=== PATIENT | female | born 2000 | race Caucasian/White ===

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

== ENCOUNTER 2023-02-24 00:52 | Emergency (ER) | payer OTHER ==
[2023-02-24 01:02] VITALS: BP 114/75; PULSE 92; RESP 16; TEMP 97.8
[2023-02-24] MEDS ORDERED: KETOROLAC 15 MG/ML 1 ML VIAL IM STA (01:17)
--- NOTE | 2023-02-24 01:21 | ED ---
Abdominal Pain HPI - General Chief Complaint: Abdominal Pain Stated Complaint: ABD Pain - Right side Time Seen by Provider: 02/24/23 01:03 Source: patient, RN notes reviewed, old records reviewed Mode of arrival: ambulatory Limitations: no limitations - History of Present Illness Initial Comments: This is a nontoxic-appearing 22-year-old female that presents to the emergency room ambulatory with complaints of right lower quadrant and rectal pain for the past 2 days. She states it's worse when she sits down. Has been having hard stools. Has had some nausea but no vomiting. Last menstrual period was January 27 but no concern for . She states her periods are irregular. Denies any dysuria. No vaginal bleeding or discharge. Patient does have a history of asthma, no previous abdominal surgeries. -: days(s) (2) Location: RLQ (and rectum) Severity scale (1-10): 7 Worsens With: bowel movement Context: other (constipation) Treatments Prior to Arrival: other (tylenol) - Related Data LMP (females 10-50): 1 month Patient : No Previous Rx's Medication Instructions Recorded Amoxic-Pot Clav 875-125Mg 1 tab PO Q12HR #14 tablet 01/11/18 [Augmentin 875-125] Amoxicillin/Potassium Clav 1 tab PO Q12HR #20 tab 08/31/18 [Augmentin 875-125 Tablet] Ofloxacin 0.3% Ophth Soln [Ocuflox 10 drops LEFT EAR BID 14 Days ml 08/31/18 Ophth Soln] polyethylene glycoL 3350 [Miralax] 17 gm PO DAILY 7 Days #7 packet 02/24/23 Allergies Allergy/AdvReac Type Severity Reaction Status Date / Time No Known Allergies Allergy Verified 01/11/18 07:25 Review of Systems ROS Statement: Those systems with pertinent positive or pertinent negative responses have been documented in the HPI. ROS Other: All systems not noted in ROS Statement are negative. Past Medical History Past Medical History: Asthma History of Any Multi-Drug Resistant Organisms: None Reported Past Surgical History: No Surgical Hx Reported Past Psychological History: No Psychological Hx Reported Smoking Status: Never smoker Past Alcohol Use History: None Reported Past Drug Use History: None Reported General Exam Limitations: no limitations General appearance: alert, in no apparent distress Head exam: Present: atraumatic, normocephalic Eye exam: Present: normal appearance. Absent: scleral icterus, conjunctival injection, periorbital swelling, periorbital tenderness Neck exam: Present: full ROM. Absent: tenderness, meningismus Respiratory exam: Absent: respiratory distress, accessory muscle use Cardiovascular Exam: Present: regular rate GI/Abdominal exam: Present: soft. Absent: distended, tenderness, guarding, rebound, rigid Extremities exam: Present: full ROM, normal capillary refill. Absent: tenderness, pedal edema Neurological exam: Present: alert, oriented X3, CN II-XII intact, normal gait Psychiatric exam: Present: normal affect, normal mood Skin exam: Present: warm, dry, normal color. Absent: cyanosis, diaphoretic, petechiae, pallor Course Vital Signs 02/24/23 00:59 Temperature 97.8 F Pulse Rate 92 Respiratory 16 Rate Blood Pressure 114/75 O2 Sat by Pulse 100 Oximetry Medical Decision Making - Medical Decision Making On exam patient has no right lower quadrant abdominal pain. States has been having a hard small stools causing rectal pain. Last bowel movement 2 days ago. Urine negative. No evidence urinary tract infection. Denies any vaginal discharge. X-ray interpreted by me shows significant constipation. Mineral oil enema provided in the emergency room which she elected to provide to herself. Patient states had a very large bowel movement 2. Patient was offered a rectal exam was declined. She was written a prescription for MiraLAX and directed to increase her fluid intake. She is agreeable to this plan of care. Case discussed with Dr. Jeff Was pt. sent in by a medical professional or institution (, PA, LEATHER TACKER, urgent care, hospital, or fci...) When possible be specific @ -No Did you speak to anyone other than the patient for history (EMS, parent, family, police, friend...)? What history was obtained from this source @ -No Did you review nursing and triage notes (agree or disagree)? Why? @ -I reviewed and agree with nursing and triage notes Were old charts reviewed (outside hosp., previous admission, EMS record, old EKG, old radiological studies, urgent care reports/EKG's, [facility]ci records)? Report findings @ -No old charts were reviewed Differential Diagnosis (chest pain, altered mental status, abdominal pain women, abdominal pain men, vaginal bleeding, weakness, fever, dyspnea, syncope, headache, dizziness, GI bleed, back pain, seizure, CVA, palpatations, mental health, musculoskeletal)? @ -Differential Abdominal Pain Women: Appendicitis, Cholecystitis, diverticulosis, ischemic bowel, pancreatitis, hepatitis, UTI, gastroenteritis, AAA, incarcerated hernia, bowel obstruction, constipation, inflammatory bowel, hepatitis, peptic ulcer disease, splenic infarction, perforated viscus, vulvitis, ovarian torsion, PID, kidney stone, placenta abruption, this is not meant to be an all-inclusive list EKG interpreted by me (3pts min.). @ -n/a X-rays interpreted by me (1pt min.). @ -yes as above CT interpreted by me (1pt min.). @ -None done U/S interpreted by me (1pt. min.). @ -None done What testing was considered but not performed or refused? (CT, X-rays, U/S, labs)? Why? @ -None What meds were considered but not given or refused? Why? @ -None Did you discuss the management of the patient with other professionals (professionals i.e. , PA, LEATHER TACKER, lab, RT, psych nurse, social media campaign manager, physician's aide, teacher, forest fire officer, business case analyst)? Give summary @ -No Was smoking cessation discussed for >3mins.? @ -No Was critical care preformed (if so, how long)? @ -No Were there social determinants of health that impacted care today? How? (Homel essness, low income, unemployed, alcoholism, drug addiction, transportation, low edu. Level, literacy, decrease access to med. care, [facility], rehab)? @ -No Was there de-escalation of care discussed even if they declined (Discuss DNR or withdrawal of care, Hospice)? DNR status @ -No What co-morbidities impacted this encounter? (DM, HTN, Smoking, COPD, CAD, Cancer, CVA, ARF, Chemo, Hep., AIDS, mental health diagnosis, sleep apnea, morbid obesity)? @ -asthma Was patient admitted / discharged? Hospital course, mention meds given and route, prescriptions, significant lab abnormalities, going to OR and other pertinent info. @ -Discharged Undiagnosed new problem with uncertain prognosis? @ -No Drug Therapy requiring intensive monitoring for toxicity (Heparin, Nitro, Insulin, Cardizem)? @ -No Were any procedures done? @ -No Diagnosis/symptom? @ -Constipation Acute, or Chronic, or Acute on Chronic? @ -Acute Uncomplicated (without systemic symptoms) or Complicated (systemic symptoms)? @ -Uncomplicated Side effects of treatment? @ -No Exacerbation, Progression, or Severe Exacerbation? @ -No Poses a threat to life or bodily function? How? (Chest pain, [place], [place], pneumonia, PE, COPD, DKA, ARF, appy, cholecystitis, CVA, Diverticulitis, Homicidal, Suicidal, threat to staff... and all critical care pts) @ -No - Lab Data Lab Results 02/24/23 02/24/23 Range/Units 01:17 01:17 Urine Color Light Yellow Urine Appearance Cloudy H (Clear) Urine pH 7.0 (5.0-8.0) Ur Specific [place] 1.016 (1.001-1.035) Urine Protein Negative (Negative) Urine Glucose (UA) Negative (Negative) Urine Ketones Negative (Negative) Urine Blood Negative (Negative) Urine Nitrite Negative (Negative) Urine Bilirubin Negative (Negative) Urine Urobilinogen <2.0 (<2.0) mg/dL Ur Leukocyte Esterase Small H (Negative) Urine RBC 1 (0-5) /hpf Urine WBC 4 (0-5) /hpf Ur Squamous Epith Cells 2 (0-4) /hpf Amorphous Sediment Rare H (None) /hpf Urine Bacteria Rare H (None) /hpf Urine HCG, Qual Not Detected (Not Detectd) Disposition Clinical Impression: Constipation Disposition: HOME SELF-CARE Condition: Good Instructions (If sedation given, give patient instructions): Constipation (ED) Additional Instructions: Increase your fluid intake. Use the MiraLAX daily. If you develop diarrhea stop taking the MiraLAX. Follow-up with the primary care doctor next week as needed. Return to the emergency room with a number concerning symptoms including increased pain, fevers or persistent nausea and vomiting. Prescriptions: polyethylene glycoL 3350 [Miralax] 17 gm PO DAILY 7 Days #7 packet Is patient prescribed a controlled substance at d/c from ED?: No Referrals: None,Stated [Primary Care Provider] - 1-2 days Time of Disposition: 02:14
[2023-02-24 01:28] LABS: Amorphous Sediment,Urine Rare /hpf; Appearance,Urine Cloudy (Clear); Bacteria,Urine Rare /hpf; Bilirubin,Urine Negative (Negative); Blood,Urine Negative (Negative); Color,Urine Light Yellow; Glucose,Urine (UA) Negative (Negative); Ketones,Urine Negative (Negative); Leukocyte Esterase,Urine Small (Negative); Nitrite,Urine Negative (Negative); Protein,Urine Negative (Negative); RBC,Urine 1 /hpf (0-5); Specific Gravity,Urine 1.016 (1.001-1.035); Squamous Epithelial Cell,Urine 2 /hpf (0-4); Urobilinogen,Urine <2.0 mg/dL (<2.0); WBC,Urine 4 /hpf (0-5)
[2023-02-24] MEDS ORDERED: MINERAL OIL 133 ML ENEMA RECTAL STA (01:43)
--- NOTE | 2023-02-24 02:17 | XR ---
EXAM: XR Abdomen, 1 View CLINICAL HISTORY: ITS.REASON XR Reason: pain TECHNIQUE: Frontal supine view of the abdomen/pelvis. COMPARISON: No previous studies. FINDINGS: Gastrointestinal tract: Moderate to large quantity of stool throughout the colon. Nonspecific bowel gas pattern. Organs: Unremarkable as visualized. No radiopaque renal calculi. Bones/joints: Gentle dextroscoliosis of the lumbar spine. Soft tissues: Soft tissues are unremarkable. IMPRESSION: 1. Moderate to large quantity of stool. Consider constipation. 2. No radiopaque renal calculi. 3. Nonspecific bowel gas pattern.
== END 2023-02-24 02:22 | disposition home or self-care (01) ==
LOC: EC 00:52
DX: K59.00 Constipation, unspecified (principal); J45.909 Unspecified asthma, uncomplicated
CPT/HCPCS: 81001; 81025; 74018; 99284; 96372; J1885

== ENCOUNTER 2023-09-06 22:32 | Emergency (ER) | payer OTHER ==
[2023-09-06 22:37] VITALS: RESP 18; TEMP 98.7
--- NOTE | 2023-09-06 23:22 | ED ---
General Adult HPI - General Chief complaint: ENT Stated complaint: Sore throat Time Seen by Provider: 09/06/23 23:00 Source: patient Mode of arrival: ambulatory Limitations: no limitations - History of Present Illness Initial comments: Yoly is a 22-year-old female who presents the emergency department today for reevaluation of the ear pain and sore throat. Patient was evaluated at outside facility last week she was diagnosed with an ear infection she took a course of amoxicillin she had some improvement in the pain for a couple of days however wo ke this morning with worsening ear pain and sore throat. Patient states progressively worsened throughout the day so she came to the ER for evaluation. - Related Data Previous Rx's Medication Instructions Recorded Amoxic-Pot Clav 875-125Mg 1 tab PO Q12HR #14 tablet 01/11/18 [Augmentin 875-125] Amoxicillin/Potassium Clav 1 tab PO Q12HR #20 tab 08/31/18 [Augmentin 875-125 Tablet] Ofloxacin 0.3% Ophth Soln [Ocuflox 10 drops LEFT EAR BID 14 Days ml 08/31/18 Ophth Soln] polyethylene glycoL 3350 [Miralax] 17 gm PO DAILY 7 Days #7 packet 02/24/23 Amoxicillin/Potassium Clav 1 tab PO BID #14 tab 09/06/23 [Amox-Clav 875-125 mg Tablet] Allergies Allergy/AdvReac Type Severity Reaction Status Date / Time No Known Allergies Allergy Verified 01/11/18 07:25 Review of Systems ROS Statement: Those systems with pertinent positive or pertinent negative responses have been documented in the HPI. ROS Other: All systems not noted in ROS Statement are negative. Past Medical History Past Medical History: Asthma History of Any Multi-Drug Resistant Organisms: None Reported Past Surgical History: No Surgical Hx Reported Additional Past Surgical History / Comment(s): Tympanostomy tubes as a child Past Psychological History: No Psychological Hx Reported Smoking Status: Never smoker Past Alcohol Use History: None Reported Past Drug Use History: None Reported General Exam - General Exam Comments Initial Comments: Physical Exam GENERAL: Patient is well-developed and well-nourished. Patient is nontoxic and well-hydrated and is in no distress. HENT: Normocephalic, Atraumatic. Left TM is bulging with purulent material, scar noted from previous tympanostomy tubes Throat is clear there is no erythema no tonsillar exudates No anterior cervical lymphadenopathy EYES: PERRL, EOMI PULMONARY: Unlabored respirations. CARDIOVASCULAR: Warm and well perfused extremities ABDOMEN: Non-distended SKIN: No rashes or bruising : Deferred NEUROLOGIC: Alert and oriented Normal speech MUSCULOSKELETAL: Moving all extremities with no apparent injury PSYCHIATRIC: Appropriate behavior Limitations: no limitations Course Vital Signs 09/06/23 22:34 Temperature 98.7 F Pulse Rate 79 Respiratory 18 Rate Blood Pressure 118/77 O2 Sat by Pulse 98 Oximetry Medical Decision Making - Medical Decision Making Was pt. sent in by a medical professional or institution (, KIERRA, DIRECTOR OF CAMPUS RECREATION, urgent care, hospital, or [facility]...) When possible be specific @ -No Did you speak to anyone other than the patient for history (EMS, parent, family, police, friend...)? What history was obtained from this source @ -No Did you review nursing and triage notes (agree or disagree)? Why? @ -I reviewed and agree with nursing and triage notes Were old charts reviewed (outside hosp., previous admission, EMS record, old EKG, old radiological studies, urgent care reports/EKG's, [facility] records)? Report findings @ -No old charts were reviewed Differential Diagnosis (chest pain, altered mental status, abdominal pain women, abdominal pain men, vaginal bleeding, weakness, fever, dyspnea, syncope, headache, dizziness, GI bleed, back pain, seizure, CVA, palpatations, mental health, musculoskeletal)? @ -Differential includes viral upper respiratory infection, strep throat, ear infections, tonsillar abscess, retropharyngeal abscess, uvulitis EKG interpreted by me (3pts min.). @ -As above X-rays interpreted by me (1pt min.). @ -None done CT interpreted by me (1pt min.). @ -None done U/S interpreted by me (1pt. min.). @ -None done What testing was considered but not performed or refused? (CT, X-rays, U/S, labs)? Why? @ -None What meds were considered but not given or refused? Why? @ -None Did you discuss the management of the patient with other professionals (professionals i.e. KIERRA Villeda, DIRECTOR OF CAMPUS RECREATION, lab, RT, psych nurse, social sciences instructor, irrigator valve pipe, teacher, tactical debriefer officer, bilingual case manager)? Give summary @ -No Was smoking cessation discussed for >3mins.? @ -No Was critical care preformed (if so, how long)? @ -No Were there social determinants of health that impacted care today? How? ( Homelessness, low income, unemployed, alcoholism, drug addiction, transportation, low edu. Level, literacy, decrease access to med. care, care home, rehab)? @ -No Was there de-escalation of care discussed even if they declined (Discuss DNR or withdrawal of care, Hospice)? DNR status @ -No What co-morbidities impacted this encounter? (DM, HTN, Smoking, COPD, CAD, Cancer, CVA, ARF, Chemo, Hep., AIDS, mental health diagnosis, sleep apnea, morbid obesity)? @ -None Was patient admitted / discharged? Hospital course, mention meds given and route, prescriptions, significant lab abnormalities, going to OR and other pertinent info. @ -Discharge The patient was seen and evaluated history is obtained from patient physical exam reveals persistent left otitis media we will change antibiotic course to Augmentin and referred to ENT for outpatient follow-up Undiagnosed new problem with uncertain prognosis? @ -No Drug Therapy requiring intensive monitoring for toxicity (Heparin, Nitro, Insulin, Cardizem)? @ -No Were any procedures done? @ -No Diagnosis/symptom? @ -Left otitis media Acute, or Chronic, or Acute on Chronic? @ -Acute Uncomplicated (without systemic symptoms) or Complicated (systemic symptoms)? @ -Uncomplicated Side effects of treatment? @ -No Exacerbation, Progression, or Severe Exacerbation? @ -No Poses a threat to life or bodily function? How? (Chest pain, [place], [place], pneumonia, PE, COPD, DKA, ARF, appy, cholecystitis, CVA, Diverticulitis, Homicidal, Suicidal, threat to staff... and all critical care pts) @ -No - Lab Data Lab Results 09/06/23 09/06/23 Range/Units 22:39 22:39 Influenza Type A (PCR) Not Detected (Not Detectd) Influenza Type B (PCR) Not Detected (Not Detectd) RSV (PCR) Not Detected (Not Detectd) SARS-CoV-2 (PCR) Not Detected (Not Detectd) Group A Strep (PCR) NOT DETECTED (Not Detectd) Disposition Clinical Impression: Left otitis media Disposition: HOME SELF-CARE Condition: Stable Instructions (If sedation given, give patient instructions): Ear Infection (ED) Prescriptions: Amoxicillin/Potassium Clav [Amox-Clav 875-125 mg Tablet] 1 tab PO BID #14 tab Is patient prescribed a controlled substance at d/c from ED?: No Referrals: None,Stated [Primary Care Provider] - 1-2 days Delon Vera MD [STAFF PHYSICIAN] - 1-2 days
[2023-09-06] MEDS: AMOXIC-POT CLAV 875-125MG 1 EACH TAB PO STA (23:29)
[2023-09-07 00:39] VITALS: BP 114/70; PULSE 87
== END 2023-09-07 00:37 | disposition home or self-care (01) ==
LOC: EC 22:32
DX: H66.92 Otitis media, unspecified, left ear (principal); J45.909 Unspecified asthma, uncomplicated; Z20.822 Contact with and (suspected) exposure to COVID-19
CPT/HCPCS: 87636; 87651; 99283

== ENCOUNTER 2023-09-23 21:15 | Emergency (ER) | payer OTHER ==
--- NOTE | 2023-09-23 22:12 | ED ---
Eye Problem HPI - General Chief complaint: Eye Problems Stated complaint: Eye Pain Time Seen by Provider: 09/23/23 22:11 Source: patient, RN notes reviewed Mode of arrival: ambulatory Limitations: no limitations - History of Present Illness Initial comments: Patient is a 22-year-old female who presents the emergency department for right eye discomfort. This started 2 days ago in the right inner eye. Patient denies injury. Denies blurred vision, double vision, eye redness. Denies fever, upper respiratory symptoms. Denies contact lens use - Related Data Previous Rx's Medication Instructions Recorded Amoxic-Pot Clav 875-125Mg 1 tab PO Q12HR #14 tablet 01/11/18 [Augmentin 875-125] Amoxicillin/Potassium Clav 1 tab PO Q12HR #20 tab 08/31/18 [Augmentin 875-125 Tablet] Ofloxacin 0.3% Ophth Soln [Ocuflox 10 drops LEFT EAR BID 14 Days ml 08/31/18 Ophth Soln] polyethylene glycoL 3350 [Miralax] 17 gm PO DAILY 7 Days #7 packet 02/24/23 Amoxic-Pot Clav 875-125Mg 1 tab PO Q12HR #14 tab 09/07/23 [Augmentin 875-125] Benzonatate [Tessalon Perles] 100 mg PO TID PRN 10 Days #30 09/08/23 capsule Ibuprofen [Motrin] 800 mg PO Q8HR PRN #30 tab 09/24/23 Allergies Allergy/AdvReac Type Severity Reaction Status Date / Time No Known Allergies Allergy Verified 09/08/23 21:24 Review of Systems ROS Statement: Those systems with pertinent positive or pertinent negative responses have been documented in the HPI. ROS Other: All systems not noted in ROS Statement are negative. Past Medical History Past Medical History: Asthma History of Any Multi-Drug Resistant Organisms: None Reported Past Surgical History: No Surgical Hx Reported Additional Past Surgical History / Comment(s): Tympanostomy tubes as a child Past Psychological History: No Psychological Hx Reported Smoking Status: Never smoker Past Alcohol Use History: None Reported Past Drug Use History: None Reported General Exam - General Exam Comments Initial Comments: Visual Physical Exam Vital signs reviewed General: Well-appearing, nontoxic, no acute distress. Head: Normocephalic, atraumatic Eyes: PERRLA, EOMI ENT: Airway patent Chest: Nonlabored breathing Skin: No visual rash, normal skin tone Neuro: Alert and oriented 3 Musculoskeletal: No gross abnormalities Limitations: no limitations General appearance: alert Head exam: Present: atraumatic, normocephalic, normal inspection Eye exam: Present: normal appearance, PERRL, EOMI. Absent: scleral icterus, conjunctival injection, periorbital swelling Respiratory exam: Present: normal lung sounds bilaterally. Absent: respiratory distress, wheezes, rales, rhonchi, stridor Cardiovascular Exam: Present: regular rate, normal rhythm, normal heart sounds. Absent: systolic murmur, diastolic murmur, rubs, gallop, clicks Neurological exam: Present: alert Psychiatric exam: Present: normal affect, normal mood Skin exam: Present: warm, dry, intact, normal color. Absent: rash Course Vital Signs 09/23/23 09/24/23 22:07 00:19 Temperature 98.5 F Pulse Rate 73 72 Respiratory 18 18 Rate Blood Pressure 127/76 132/98 O2 Sat by Pulse 99 100 Oximetry Medical Decision Making - Medical Decision Making I performed the QuickNote portion of this chart - Eli Estrada PA-C Was pt. sent in by a medical professional or institution (KIERRA Villeda, MONORAIL CAR OPERATOR, urgent care, hospital, or jail...) When possible be specific @ -No Did you speak to anyone other than the patient for history (EMS, parent, family, police, friend...)? What history was obtained from this source @ -No Did you review nursing and triage notes (agree or disagree)? Why? @ -I reviewed and agree with nursing and triage notes Were old charts reviewed (outside hosp., previous admission, EMS record, old EKG, old radiological studies, urgent care reports/EKG's, jail records)? Report findings @ -No old charts were reviewed Differential Diagnosis (chest pain, altered mental status, abdominal pain women, abdominal pain men, vaginal bleeding, weakness, fever, dyspnea, syncope, headache, dizziness, GI bleed, back pain, seizure, CVA, palpatations, mental health)? @Conjunctivitis, corneal abrasion, corneal ulcer. This list is not meant to be all-inclusive EKG interpreted by me (3pts min.). @ -As above X-rays interpreted by me (1pt min.). @ -None done CT interpreted by me (1pt min.). @ -None done U/S interpreted by me (1pt. min.). @ -None done What testing was considered but not performed or refused? (CT, X-rays, U/S, labs)? Why? @ -None What meds were considered but not given or refused? Why? @ -None Did you discuss the management of the patient with other professionals (professionals i.e. DrDulce Maria, PA, MONORAIL CAR OPERATOR, lab, RT, psych nurse, high school social studies tutor, steam hammer operator, teacher, chief compliance officer, manager rn case)? Give summary @ -No Was smoking cessation discussed for >3mins.? @ -No Was critical care preformed (if so, how long)? @ -No Were there social determinants of health that impacted care today? How? (Homelessness, low income, unemployed, alcoholism, drug addiction, transportation, low edu. Level, literacy, decrease access to med. care, detention, rehab)? @ -No Was there de-escalation of care discussed even if they declined (Discuss DNR or withdrawal of care, Hospice)? DNR status @ -No What co-morbidities impacted this encounter? (DM, HTN, Smoking, COPD, CAD, Cancer, CVA, ARF, Chemo, Hep., AIDS, mental health diagnosis, sleep apnea, morbid obesity)? @ -None Was patient admitted / discharged? Hospital course, mention meds given and route, prescriptions, significant lab abnormalities, going to OR and other pertinent info. @ -Discharged with antibiotic drops for corneal abrasion Undiagnosed new problem with uncertain prognosis? @ -No Drug Therapy requiring intensive monitoring for toxicity (Heparin, Nitro, Insulin, Cardizem)? @ -No Were any procedures done? @ ricketts lamp examination Diagnosis/symptom? @ -corneal abrasion Acute, or Chronic, or Acute on Chronic? @ -acute Uncomplicated (without systemic symptoms) or Complicated (systemic symptoms)? @ -uncomplicated Side effects of treatment? @ -No Exacerbation, Progression, or Severe Exacerbation? @ -No Poses a threat to life or bodily function? How? (Chest pain, [place], [place], pneumonia, PE, COPD, DKA, ARF, appy, cholecystitis, CVA, Diverticulitis, Homicidal, Suicidal, threat to staff... and all critical care pts) @ -No Dr. Jeff is my attending Disposition Clinical Impression: Corneal abrasion, right Disposition: HOME SELF-CARE Condition: Good Instructions (If sedation given, give patient instructions): Corneal Abrasion (ED) Additional Instructions: Apply ointment 4 times daily for 5 days. Take motrin as needed for pain. Encourage you to follow-up with an application services manager. Return to the emergency department if you experience new, concerning, or worsening symptoms Prescriptions: Ibuprofen [Motrin] 800 mg PO Q8HR PRN #30 tab PRN Reason: Pain Is patient prescribed a controlled substance at d/c from ED?: No Referrals: None,Stated [Primary Care Provider] - 1-2 days
[2023-09-23 22:26] VITALS: RESP 18; TEMP 98.5
[2023-09-23] MEDS ORDERED: FLUORESCEIN STRIPS 1 MG STRIP RIGHT EYE STA (23:32)
[2023-09-23] MEDS ORDERED: PROPARACAINE 0.5% OPHTH DROPS 15 ML BTL RIGHT EYE STA (23:33)
[2023-09-23] MEDS ORDERED: IBUPROFEN 800 MG TAB PO STA (23:33)
[2023-09-24] MEDS ORDERED: ERYTHROMYCIN 5 MG/GM OPHTH OINT 3.5 GM TUBE RIGHT EYE STA (00:15)
[2023-09-24 00:34] VITALS: BP 132/98; PULSE 72
== END 2023-09-24 00:24 | disposition home or self-care (01) ==
LOC: EC 21:15
DX: S05.01XA Injury of conjunctiva and corneal abrasion without foreign body, right eye, initial encounter (principal); J45.909 Unspecified asthma, uncomplicated; X58.XXXA Exposure to other specified factors, initial encounter
CPT/HCPCS: 99283

== ENCOUNTER 2023-12-23 20:52 | Emergency (ER) | payer OTHER ==
[2023-12-23 21:31] VITALS: TEMP 97.9
--- NOTE | 2023-12-23 22:16 | ED ---
Headache HPI - General Chief Complaint: Headache Stated Complaint: Head injury Time Seen by Provider: 12/23/23 21:44 Mode of arrival: ambulatory Limitations: no limitations - History of Present Illness Initial Comments: 23-year-old female presenting with chief complaint of head injury. Patient states that she just moved into a house with slanted ceilings, she hit her head today because she is not used to the new ceilings yet. She had no loss of consciousness and takes no blood thinners. She has had some soreness over the area of impact. She was having a bit of dizziness immediately following the injury, however this has progressively improved. No vomiting. No vision or hearing changes. No numbness, tingling, weakness. No clear discharge from the nose or ears. No neck pain. - Related Data Previous Rx's Medication Instructions Recorded Amoxic-Pot Clav 875-125Mg 1 tab PO Q12HR #14 tablet 01/11/18 [Augmentin 875-125] Amoxicillin/Potassium Clav 1 tab PO Q12HR #20 tab 08/31/18 [Augmentin 875-125 Tablet] Ofloxacin 0.3% Ophth Soln [Ocuflox 10 drops LEFT EAR BID 14 Days ml 08/31/18 Ophth Soln] polyethylene glycoL 3350 [Miralax] 17 gm PO DAILY 7 Days #7 packet 02/24/23 Amoxic-Pot Clav 875-125Mg 1 tab PO Q12HR #14 tab 09/07/23 [Augmentin 875-125] Benzonatate [Tessalon Perles] 100 mg PO TID PRN 10 Days #30 09/08/23 capsule Ibuprofen [Motrin] 800 mg PO Q8HR PRN #30 tab 09/24/23 Allergies Allergy/AdvReac Type Severity Reaction Status Date / Time No Known Allergies Allergy Verified 12/23/23 21:04 Review of Systems ROS Statement: Those systems with pertinent positive or pertinent negative responses have been documented in the HPI. ROS Other: All systems not noted in ROS Statement are negative. Past Medical History Past Medical History: Asthma History of Any Multi-Drug Resistant Organisms: None Reported Past Surgical History: No Surgical Hx Reported, Ear Surgery Additional Past Surgical History / Comment(s): Tympanostomy tubes as a child Past Psychological History: No Psychological Hx Reported Smoking Status: Never smoker Past Alcohol Use History: None Reported Past Drug Use History: None Reported General Exam Limitations: no limitations General appearance: alert, in no apparent distress Head exam: Present: atraumatic, normocephalic Eye exam: Present: normal appearance, PERRL, EOMI Neck exam: Present: normal inspection, full ROM Respiratory exam: Absent: respiratory distress Cardiovascular Exam: Present: regular rate Extremities exam: Present: normal inspection, full ROM Neurological exam: Present: alert, oriented X3 Expanded Patient oriented to: Present: person, place, time Speech: Present: fluid speech Cranial nerves: EOM's Intact: Normal Cerebellar function: Finger to Nose: Normal, Heel to Koch: Normal Motor strength exam: RUE: 5, LUE: 5, RLE: 5, LLE: 5 Eye Response: (4) open spontaneously Motor Response: (6) obeys commands Verbal Response: (5) oriented [place] Total: 15 Psychiatric exam: Present: normal affect, normal mood Skin exam: Present: warm, dry Course Vital Signs 12/23/23 12/23/23 21:04 22:41 Temperature 97.9 F Pulse Rate 97 107 H Respiratory 16 18 Rate Blood Pressure 147/92 125/84 O2 Sat by Pulse 100 98 Oximetry Medical Decision Making - Medical Decision Making Was pt. sent in by a medical professional or institution ([facility], [facility], urgent care, hospital, or [facility]...) When possible be specific @ -No Did you speak to anyone other than the patient for history (EMS, parent, family, police, friend...)? What history was obtained from this source @ -No Did you review nursing and triage notes (agree or disagree)? Why? @ -I reviewed and agree with nursing and triage notes Were old charts reviewed (outside hosp., previous admission, EMS record, old EKG, old radiological studies, urgent care reports/EKG's, [facility] records)? Report findings @ -No old charts were reviewed Differential Diagnosis (chest pain, altered mental status, abdominal pain women, abdominal pain men, vaginal bleeding, weakness, fever, dyspnea, syncope, headache, dizziness, GI bleed, back pain, seizure, CVA, palpatations, mental health, musculoskeletal)? @ -[facility] Differential Headache: Migraine, tension, cluster, carbon monoxide, central venous thrombosis, pension karma temporal arteritis, acute closure glaucoma, intercranial hemorrhage, mastoiditis, sinusitis, head injury this is not meant to be an all-inclusive list. EKG interpreted by me (3pts min.). @ -As above X-rays interpreted by me (1pt min.). @ -None done CT interpreted by me (1pt min.). @ -None done U/S interpreted by me (1pt. min.). @ -None done What testing was considered but not performed or refused? (CT, X-rays, U/S, labs)? Why? @ -None What meds were considered but not given or refused? Why? @ -None Did you discuss the management of the patient with other professionals (professionals i.e. Dr., PA, KNITTER HELPER, lab, RT, psych nurse, child protective services social worker, bus attendant, teacher, chief risk officer, residential case manager)? Give summary @ -No Was smoking cessation discussed for >3mins.? @ -No Was critical care preformed (if so, how long)? @ -No Were there social determinants of health that impacted care today? How? (Homelessness, low income, unemployed, alcoholism, drug addiction, transportation, low edu. Level, literacy, decrease access to med. care, long term, rehab)? @ -No Was there de-escalation of care discussed even if they declined (Discuss DNR or withdrawal of care, Hospice)? DNR status @ -No What co-morbidities impacted this encounter? (DM, HTN, Smoking, COPD, CAD, Cancer, CVA, ARF, Chemo, Hep., AIDS, mental health diagnosis, sleep apnea, morbid obesity)? @ -None Was patient admitted / discharged? Hospital course, mention meds given and route, prescriptions, significant lab abnormalities, going to OR and other pertinent info. @ -23-year-old female presenting with chief complaint of head injury. She hit her head on her ceiling today, no loss of consciousness or blood thinners. History and physical exam were conducted. No focal neurological deficits, GCS is 15. [facility] head CT rules do not recommend CT at this time. Patient is educated on today's findings and supportive management at home. Follow-up with PCP. Report back to ER with any new or worsening symptoms. Discussed return parameters and answered all questions. Patient conveyed verbal understanding and agreed to the plan. I discussed this case in detail with my attending Dr. Wilson Undiagnosed new problem with uncertain prognosis? @ -No Drug Therapy requiring intensive monitoring for toxicity (Heparin, Nitro, Insulin, Cardizem)? @ -No Were any procedures done? @ -No Diagnosis/symptom? @ -Minor closed head injury Acute, or Chronic, or Acute on Chronic? @ -Acute Uncomplicated (without systemic symptoms) or Complicated (systemic symptoms)? @ -Uncomplicated Side effects of treatment? @ -No Exacerbation, Progression, or Severe Exacerbation? @ -No Poses a threat to life or bodily function? How? (Chest pain, [place], [place], pneumonia, PE, COPD, DKA, ARF, appy, cholecystitis, CVA, Diverticulitis, Homicidal, Suicidal, threat to staff... and all critical care pts) @ -No Disposition Clinical Impression: Minor closed head injury, Headache Disposition: HOME SELF-CARE Condition: Good Instructions (If sedation given, give patient instructions): Head Injury (ED), Acute Headache (ED) Additional Instructions: Follow-up with PCP. Report back to ER with any new or worsening symptoms. Take Motrin and Tylenol as needed for pain control. Is patient prescribed a controlled substance at d/c from ED?: No Referrals: None,Stated [Primary Care Provider] - 1-2 days Guy Sy MD [STAFF PHYSICIAN] - 1-2 days Time of Disposition: 22:16
[2023-12-23] MEDS: ACETAMINOPHEN TAB 325 MG TAB PO STA (22:38)
[2023-12-23 22:51] VITALS: BP 125/84; PULSE 107; RESP 18
== END 2023-12-23 22:41 | disposition home or self-care (01) ==
LOC: EC 20:52
DX: S09.90XA Unspecified injury of head, initial encounter (principal); J45.909 Unspecified asthma, uncomplicated; W22.8XXA Striking against or struck by other objects, initial encounter
CPT/HCPCS: 99283

== ENCOUNTER 2025-06-03 09:32 | Emergency (ER) | payer OTHER ==
[2025-06-03 10:06] VITALS: RESP 18
--- NOTE | 2025-06-03 10:48 | ED ---
Skin/Abscess/FB HPI - General Chief complaint: Skin/Abscess/Foreign Body Stated complaint: Urogenital Time Seen by Provider: 06/03/25 10:46 Source: patient, RN notes reviewed Mode of arrival: ambulatory Limitations: no limitations - History of Present Illness Initial comments: 24-year-old female presenting for abscess to labia x 4 days. States she has been applying warm compresses and abscess has been actively draining however continues to be cause pain and discomfort. Denies fevers, chills, nausea, vomiting. Denies vaginal discharge or urinary symptoms. - Related Data Previous Rx's Medication Instructions Recorded Amoxic-Pot Clav 875-125Mg 1 tab PO Q12HR #14 tablet 01/11/18 [Augmentin 875-125] Amoxicillin/Potassium Clav 1 tab PO Q12HR #20 tab 08/31/18 [Augmentin 875-125 Tablet] Ofloxacin 0.3% Ophth Soln [Ocuflox 10 drops LEFT EAR BID 14 Days ml 08/31/18 Ophth Soln] polyethylene glycoL 3350 [Miralax] 17 gm PO DAILY 7 Days #7 packet 02/24/23 Amoxic-Pot Clav 875-125Mg 1 tab PO Q12HR #14 tab 09/07/23 [Augmentin 875-125] Benzonatate [Tessalon Perles] 100 mg PO TID PRN 10 Days #30 09/08/23 capsule Ibuprofen [Motrin] 800 mg PO Q8HR PRN #30 tab 09/24/23 ceFIXime [Suprax] 400 mg PO DAILY 7 Days #7 capsule 06/03/25 clindamycin HCL 300 mg PO QID 7 Days #28 cap 06/03/25 Allergies Allergy/AdvReac Type Severity Reaction Status Date / Time No Known Allergies Allergy Verified 06/03/25 10:06 Review of Systems ROS Statement: Those systems with pertinent positive or pertinent negative responses have been documented in the HPI. ROS Other: All systems not noted in ROS Statement are negative. Past Medical History Past Medical History: Asthma History of Any Multi-Drug Resistant Organisms: None Reported Past Surgical History: No Surgical Hx Reported, Ear Surgery Additional Past Surgical History / Comment(s): Tympanostomy tubes as a child Past Psychological History: Depression, PTSD Smoking Status: Never smoker Past Alcohol Use History: None Reported Past Drug Use History: None Reported General Exam Limitations: no limitations General appearance: alert, in no apparent distress Head exam: Present: atraumatic, normocephalic, normal inspection Eye exam: Present: normal appearance, PERRL, EOMI. Absent: scleral icterus, conjunctival injection, periorbital swelling External exam: Absent: normal external exam (There is a fluctuant 2 x 2 cm mass on right outer labia with no active drainage, mild warmth minimal erythema. [facility] venereal disease investigator examination) Course Vital Signs 06/03/25 10:03 Temperature 98.2 F Pulse Rate 84 Respiratory 18 Rate Blood Pressure 106/68 O2 Sat by Pulse 99 Oximetry Procedures - Incision & Drainage Consent Obtained: verbal consent Indication: Bartholin cyst Site: vulva/vagina Size (cm): 2 I&D Cleaning Method: Betadine Sterile Field Used?: No Scalpel Used: #11 Ultrasound used: No Needle Aspiration Performed?: No Irrigation Performed?: No I&D Drainage Obtained: Blood Culture Obtained?: No Complications: pain, other (Patient did not tolerate well, patient requesting to stop the procedure) Medical Decision Making - Medical Decision Making Was pt. sent in by a medical professional or institution (, PA, CHIEF OPERATOR HYDROFORMER, urgent care, hospital, or group home...) When possible be specific @ -No Did you speak to anyone other than the patient for history (EMS, parent, family, police, friend...)? What history was obtained from this source @ -No Did you review nursing and triage notes (agree or disagree)? Why? @ -I reviewed and agree with nursing and triage notes Were old charts reviewed (outside hosp., previous admission, EMS record, old EKG, old radiological studies, urgent care reports/EKG's, group home records)? Report findings @ -No old charts were reviewed Differential Diagnosis (chest pain, altered mental status, abdominal pain women, abdominal pain men, vaginal bleeding, weakness, fever, dyspnea, syncope, headache, dizziness, GI bleed, back pain, seizure, CVA, palpatations, mental health, musculoskeletal)? @ -[Differential Musculoskeletal Bartholin cyst, abscess, muscular strain, contusion, ligament sprain, fracture, arthritis, septic arthritis, bursitis, cellulitis, muscle spasm, nerve compression, DVT, arterial occlusion, herpes zoster, electrolyte abnormality, tumor.... This is not meant to be in all inclusive list EKG interpreted by me (3pts min.). @ -None X-rays interpreted by me (1pt min.). @ -None done CT interpreted by me (1pt min.). @ -None done U/S interpreted by me (1pt. min.). @ -None done What testing was considered but not performed or refused? (CT, X-rays, U/S, labs)? Why? @ -None What meds were considered but not given or refused? Why? @ -None Did you discuss the management of the patient with other professionals (professionals i.e. , PA, CHIEF OPERATOR HYDROFORMER, lab, RT, psych nurse, social work manager, property technician, teacher, retirement officer, case reviewer)? Give summary @ -No Was smoking cessation discussed for >3mins.? @ -No Was critical care preformed (if so, how long)? @ -No Were there social determinants of health that impacted care today? How? (Homelessness, low income, unemployed, alcoholism, drug addiction, transportation, low edu. Level, literacy, decrease access to med. care, halfway, rehab)? @ -No Was there de-escalation of care discussed even if they declined (Discuss DNR or withdrawal of care, Hospice)? DNR status @ -No What co-morbidities impacted this encounter? (DM, HTN, Smoking, COPD, CAD, Cancer, CVA, ARF, Chemo, Hep., AIDS, mental health diagnosis, sleep apnea, morbid obesity)? @ -None Was patient admitted / discharged? Hospital course, mention meds given and route, prescriptions, significant lab abnormalities, going to OR and other pertinent info. @ -Discharge. 24-year-old female presenting for abscess on labia x 4 days. Physical examination reveals 2 x 2 cm Bartholin cyst. Discussed with patient that the best treatment is incision and drainage with catheter placement with outpatient antibiotics. Patient declines catheter placement but states she is willing to but states she is willing to attempt incision and drainage without numbing as she has had this in the past and was very painful. Incision and drainage was attempted however patient unable to tolerate the procedure and asked to stop the procedure. Prescribed appropriate antibiotics and advised patient to apply warm compresses 3 times daily. Appropriate return precautions/follow-up/supportive care discussed. Case was discussed with my ED attending Dr. Hare. Undiagnosed new problem with uncertain prognosis? @ -No Drug Therapy requiring intensive monitoring for toxicity (Heparin, Nitro, Insulin, Cardizem)? @ -No Were any procedures done? @ -Attempted I&D however unsuccessful due to given patient was not able to tolerate the procedure Diagnosis/symptom? @ -Bartholin cyst Acute, or Chronic, or Acute on Chronic? @ -Acute Uncomplicated (without systemic symptoms) or Complicated (systemic symptoms)? @ -Uncomplicated Side effects of treatment? @ -No Exacerbation, Progression, or Severe Exacerbation? @ -No Poses a threat to life or bodily function? How? (Chest pain, [place], [place], pneumonia, PE, COPD, DKA, ARF, appy, cholecystitis, CVA, Diverticulitis, Homicidal, Suicidal, threat to staff... and all critical care pts) @ -No Disposition Clinical Impression: Bartholin's gland abscess Disposition: HOME SELF-CARE Condition: Stable Instructions (If sedation given, give patient instructions): Bartholin Cyst (ED) Additional Instructions: Take antibiotics as directed. Apply warm compresses 3 times daily. Manipulate the abscess while it is actively draining as discussed. Sitz baths may also help. Please return to the Emergency Department if symptoms worsen or any other concerns. Prescriptions: clindamycin HCL 300 mg PO QID 7 Days #28 cap ceFIXime [Suprax] 400 mg PO DAILY 7 Days #7 capsule Is patient prescribed a controlled substance at d/c from ED?: No Referrals: None,Stated [Primary Care Provider] - 1-2 days Time of Disposition: 11:15
[2025-06-03 11:30] VITALS: BP 104/72; PULSE 80; TEMP 98.1
== END 2025-06-03 11:29 | disposition home or self-care (01) ==
LOC: EC 09:32
DX: N75.0 Cyst of Bartholin's gland (principal)
CPT/HCPCS: 56420; 99283

== ENCOUNTER 2025-06-04 02:15 | Emergency (ER) | payer OTHER ==
--- NOTE | 2025-06-04 03:20 | ED ---
Female Urogenital HPI - General Chief complaint: Urogenital Stated complaint: dizzy Time Seen by Provider: 06/04/25 02:34 Source: patient, RN notes reviewed Mode of arrival: ambulatory Limitations: no limitations - History of Present Illness Initial comments: This is a 24-year-old female with history of asthma presenting for labial cyst. Patient was seen in this ER yesterday, declining I&D due to significant pain. Patient states cyst is becoming larger and more painful with associated nausea despite use of warm compresses. Patient states she woke this morning feeling "out of it". Denies dysuria, hematuria, vaginal bleeding/discharge, abdominal pain. Onset/Timin -: days(s) Location: labia Radiation: non-radiating Severity: moderate Consistency: constant Improves with: none Worsens with: none - Related Data Previous Rx's Medication Instructions Recorded Amoxic-Pot Clav 875-125Mg 1 tab PO Q12HR #14 tablet 01/11/18 [Augmentin 875-125] Amoxicillin/Potassium Clav 1 tab PO Q12HR #20 tab 08/31/18 [Augmentin 875-125 Tablet] Ofloxacin 0.3% Ophth Soln [Ocuflox 10 drops LEFT EAR BID 14 Days ml 08/31/18 Ophth Soln] polyethylene glycoL 3350 [Miralax] 17 gm PO DAILY 7 Days #7 packet 02/24/23 Amoxic-Pot Clav 875-125Mg 1 tab PO Q12HR #14 tab 09/07/23 [Augmentin 875-125] Benzonatate [Tessalon Perles] 100 mg PO TID PRN 10 Days #30 09/08/23 capsule Ibuprofen [Motrin] 800 mg PO Q8HR PRN #30 tab 09/24/23 ceFIXime [Suprax] 400 mg PO DAILY 7 Days #7 capsule 06/03/25 clindamycin HCL 300 mg PO QID 7 Days #28 cap 06/03/25 Mag Hydrox/Al Hydrox/Simeth 10 - 20 ml PO QID PRN #473 ml 06/11/25 [Maalox] Metoclopramide [Reglan] 10 mg PO Q6H PRN #20 tab 06/11/25 Pantoprazole Sodium 40 mg PO DAILY #30 tab 06/11/25 Allergies Allergy/AdvReac Type Severity Reaction Status Date / Time No Known Allergies Allergy Verified 06/10/25 22:20 Review of Systems ROS Statement: Those systems with pertinent positive or pertinent negative responses have been documented in the HPI. ROS Other: All systems not noted in ROS Statement are negative. Past Medical History Past Medical History: Asthma History of Any Multi-Drug Resistant Organisms: None Reported Past Surgical History: No Surgical Hx Reported, Ear Surgery Additional Past Surgical History / Comment(s): Tympanostomy tubes as a child Past Psychological History: Depression, PTSD Smoking Status: Never smoker Past Alcohol Use History: None Reported Past Drug Use History: None Reported General Exam General appearance: alert, in no apparent distress Head exam: Present: atraumatic, normocephalic, normal inspection Eye exam: Present: normal appearance, PERRL, EOMI. Absent: scleral icterus, conjunctival injection, periorbital swelling ENT exam: Present: normal exam, mucous membranes moist Neck exam: Present: normal inspection. Absent: tenderness, meningismus, lymphadenopathy Respiratory exam: Present: normal lung sounds bilaterally. Absent: respiratory distress, wheezes, rales, rhonchi, stridor Cardiovascular Exam: Present: regular rate, normal rhythm, normal heart sounds. Absent: systolic murmur, diastolic murmur, rubs, gallop, clicks GI/Abdominal exam: Present: soft, normal bowel sounds. Absent: distended, tenderness, guarding, rebound, rigid External exam: Present: erythema, swelling (Positive erythema, edema and tenderness with fluctuant cyst/abscess of right superior labia majora without obvious discharge or open wound) Extremities exam: Present: normal inspection, full ROM, normal capillary refill. Absent: tenderness, pedal edema, joint swelling, calf tenderness Back exam: Present: normal inspection Neurological exam: Present: alert, oriented X3, CN II-XII intact Psychiatric exam: Present: normal affect, normal mood Skin exam: Present: warm, dry, intact, normal color. Absent: rash Course Vital Signs 06/04/25 06/04/25 02:21 05:05 Temperature 97.4 F L 97.6 F Pulse Rate 82 81 Respiratory 19 18 Rate Blood Pressure 128/78 124/72 O2 Sat by Pulse 99 97 Oximetry Procedures - Incision & Drainage Consent Obtained: verbal consent Indication: Abscess/cyst Site: vulva/vagina Size (cm): 3 Anesthetic Used: lidocaine 1% I&D Cleaning Method: Alcohol Wipe Sterile Field Used?: No Scalpel Used: #11 Ultrasound used: No Needle Aspiration Performed?: No Irrigation Performed?: Yes I&D Drainage Obtained: Blood, Serous Insertion of drain: No Culture Obtained?: No Complications: pain Patient Tolerated Procedure: well, no complications Medical Decision Making - Medical Decision Making Was pt. sent in by a medical professional or institution (KIERRA Villeda, KNIFE FINISHER, urgent care, hospital, or assisted...) When possible be specific @ -No Did you speak to anyone other than the patient for history (EMS, parent, family, police, friend...)? What history was obtained from this source @ -No Did you review nursing and triage notes (agree or disagree)? Why? @ -I reviewed and agree with nursing and triage notes Were old charts reviewed (outside hosp., previous admission, EMS record, old EKG, old radiological studies, urgent care reports/EKG's, assisted records)? Report findings @ -Chart from ER visit on 06/03/2025 reviewed, indicating patient was unable to tolerate I&D of abscess at the time and advised warm compress and antibiotics. Differential Diagnosis (chest pain, altered mental status, abdominal pain women, abdominal pain men, vaginal bleeding, weakness, fever, dyspnea, syncope, headache, dizziness, GI bleed, back pain, seizure, CVA, palpatations, mental health, musculoskeletal)? @ -Differential Musculoskeletal Muscular strain, contusion, ligament sprain, fracture, arthritis, abscess, cyst, septic arthritis, bursitis, cellulitis, muscle spasm, nerve compression, DVT, arterial occlusion, herpes zoster, electrolyte abnormality, tumor.... This is not meant to be in all inclusive list EKG interpreted by me (3pts min.). @ -Not done X-rays interpreted by me (1pt min.). @ -None done CT interpreted by me (1pt min.). @ -None done U/S interpreted by me (1pt. min.). @ -None done What testing was considered but not performed or refused? (CT, X-rays, U/S, labs)? Why? @ -None What meds were considered but not given or refused? Why? @ -None Did you discuss the management of the patient with other professionals (professionals i.e. KIERRA Villeda, KNIFE FINISHER, lab, RT, psych nurse, social media coordinator, watch supervisor, teacher, client sales and service officer, cyanide case hardener)? Give summary @ -No Was smoking cessation discussed for >3mins.? @ -No Was critical care preformed (if so, how long)? @ -No Were there social determinants of health that impacted care today? How? (Homelessness, low income, unemployed, alcoholism, drug addiction, transportation, low edu. Level, literacy, decrease access to med. care, care home, rehab)? @ -No Was there de-escalation of care discussed even if they declined (Discuss DNR or withdrawal of care, Hospice)? DNR status @ -No What co-morbidities impacted this encounter? (DM, HTN, Smoking, COPD, CAD, Cancer, CVA, ARF, Chemo, Hep., AIDS, mental health diagnosis, sleep apnea, morbid obesity)? @ -None Was patient admitted / discharged? Hospital course, mention meds given and route, prescriptions, significant lab abnormalities, going to OR and other pertinent info. @ -Incision and drainage performed with blood and serous like fluid expressed with ongoing drainage following flushing. Abscess culture swab obtained. 4 x 4 gauze placed over incision site and advised patient to allow ongoing drainage from site with pad changes as needed. Keep area clean with antibacterial soap and water at least twice daily. Continue previously prescribed clindamycin to completion. Discussed patient with Dr. Brewer. Undiagnosed new problem with uncertain prognosis? @ -No Drug Therapy requiring intensive monitoring for toxicity (Heparin, Nitro, Insulin, Cardizem)? @ -No Were any procedures done? @ -Abscess incision and drainage performed. See procedure note Diagnosis/symptom? @ -Labial abscess/cyst, possible Bartholin cyst Acute, or Chronic, or Acute on Chronic? @ -Acute Uncomplicated (without systemic symptoms) or Complicated (systemic symptoms)? @ -Uncomplicated Side effects of treatment? @ -No Exacerbation, Progression, or Severe Exacerbation? @ -No Poses a threat to life or bodily function? How? (Chest pain, [place], NC, pneumonia, PE, COPD, DKA, ARF, appy, cholecystitis, CVA, Diverticulitis, Homicidal, Suicidal, threat to staff... and all critical care pts) @ -No Disposition Clinical Impression: Abscess of right genital labia Disposition: HOME SELF-CARE Condition: Fair Instructions (If sedation given, give patient instructions): Abscess Incision and Drainage (ED), Abscess (ED) Additional Instructions: Keep incision site clean with antibacterial soap and water with pad changes as needed. Continue previously prescribed antibiotics as directed. Apply warm compress to affected area for 10 minutes up to 4 times daily. Follow-up with [facility] next week for ongoing care/management. Is patient prescribed a controlled substance at d/c from ED?: No Referrals: None,Stated [Primary Care Provider] - 1-2 days Jennifer Schneider MD [STAFF PHYSICIAN] - 1-2 days Time of Disposition: 04:40
[2025-06-04] MEDS: LIDOCAINE 1% INJ 10MG/ML (20 ML MDV) SQ ONE (04:56)
[2025-06-04 05:08] VITALS: BP 124/72; PULSE 81; RESP 18; TEMP 97.6
== END 2025-06-04 05:11 | disposition home or self-care (01) ==
LOC: EC 02:15
DX: N76.4 Abscess of vulva (principal)
CPT/HCPCS: 99283; 56405; J2003

== ENCOUNTER 2025-06-10 22:15 | Emergency (ER) | payer OTHER ==
[2025-06-10] MEDS: SODIUM CHLORIDE 0.9% 1,000 ML IV ONE (22:40)
[2025-06-10] MEDS: DICYCLOMINE 10 MG/ML 2 ML AMP IM STA (22:40)
[2025-06-10] MEDS: FAMOTIDINE 20 MG/2 ML VIAL IV STA (22:41)
[2025-06-10] MEDS: PANTOPRAZOLE 40 MG/10 ML VIAL IVP STA (22:41)
[2025-06-10] MEDS: ONDANSETRON 4 MG/2 ML VIAL IVP STA (22:41)
[2025-06-10 22:45] LABS: Bacteria,Urine Rare /hpf; Bilirubin,Urine Negative (Negative); Blood,Urine Negative (Negative); Color,Urine Colorless; Glucose,Urine (UA) Negative (Negative); Ketones,Urine Negative (Negative); Leukocyte Esterase,Urine Negative (Negative); Mucus,Urine Rare /hpf; Nitrite,Urine Negative (Negative); PH, Urine 6.5 (5.0-8.0); Protein,Urine Negative (Negative); RBC,Urine <1 /hpf (0-5); Specific Gravity,Urine 1.016 (1.001-1.035); Squamous Epithelial Cell,Urine 8 /hpf (0-4); Urobilinogen,Urine <2.0 mg/dL (<2.0); WBC,Urine 2 /hpf (0-5)
[2025-06-10 22:50] LABS: Basophils # (A) 0.05 10*3/uL (0.00-0.10); Basophils % (A) 0.5 %; Eosinophils # (A) 0.29 10*3/uL (0.04-0.35); Eosinophils % (A) 3.1 %; HCT 35.4 % (37.2-46.3); HGB 11.7 g/dL (12.0-15.0); Lymphocytes # (A) 2.76 10*3/uL (0.90-5.00); Lymphocytes % (A) 29.5 %; MCH 28.3 pg (27.0-32.0); MCHC 33.1 g/dL (32.0-37.0); MCV 85.5 fL (80.0-97.0); Monocytes # (A) 0.54 10*3/uL (0.20-1.00); Monocytes % (A) 5.8 %; Neutrophils # (A) 5.70 10*3/uL (1.80-7.70); Neutrophils % (A) 60.9 %; Platelet Count 357 10*3/uL (140-440); RBC 4.14 10*6/uL (4.10-5.20); RDW 12.9 % (11.5-14.5); WBC 9.36 10*3/uL (4.50-10.00)
[2025-06-10 23:26] LABS: ALT 20 U/L (4-34); AST 27 U/L (14-36); African American GFR (CKD) >90 (>60 ml/min/1.73 sqM); Albumin 4.1 g/dL (3.5-5.0); Alkaline Phosphatase 88 U/L (38-126); Anion Gap 9 mmol/L; Blood Urea Nitrogen 14 mg/dL (7-17); Calcium 9.5 mg/dL (8.4-10.2); Carbon Dioxide 23 mmol/L (22-30); Chloride 105 mmol/L (98-107); Glucose 81 mg/dL (74-99); Lipase 60 U/L (23-300); Magnesium 1.9 mg/dL (1.6-2.3); Non-African American GFR(CKD) >90 (>60 ml/min/1.73 sqM); Potassium 4.2 mmol/L (3.5-5.1); Sodium 137 mmol/L (137-145); Total Protein 6.9 g/dL (6.3-8.2)
[2025-06-10 23:42] VITALS: BP 109/70; PULSE 73; RESP 16; TEMP 98.1
[2025-06-11] MEDS: METOCLOPRAMIDE 5 MG/ML 2 ML VIAL IVP STA (00:43)
[2025-06-11] MEDS: MAG HYDROX/AL HYDROX/SIMETH 30 ML CUP PO STA (00:43)
[2025-06-11] MEDS: ONDANSETRON 4 MG ODT STARTER PACK TAB BTL PO STA (01:12)
--- NOTE | 2025-06-11 01:14 | ED ---
Nausea/Vomiting/Diarrhea HPI - General Chief complaint: Nausea/Vomiting/Diarrhea Stated complaint: Nausea Time Seen by Provider: 06/10/25 22:22 Source: patient, RN notes reviewed Mode of arrival: ambulatory Limitations: no limitations - History of Present Illness Initial comments: This is a 24-year-old female who presents to the emergency department for nausea, vomiting, and acid reflux. States that she was treated with antibiotics for a Bartholin cyst and since being on them she has felt nauseous and had several episodes of vomiting today. Also feels like acid reflux is acting up on her. She does have a history of acid reflux but is not currently taking anything for it. Denies any abdominal pain. Denies any changes in bowel/bladder habits. - Related Data Previous Rx's Medication Instructions Recorded Amoxic-Pot Clav 875-125Mg 1 tab PO Q12HR #14 tablet 01/11/18 [Augmentin 875-125] Amoxicillin/Potassium Clav 1 tab PO Q12HR #20 tab 08/31/18 [Augmentin 875-125 Tablet] Ofloxacin 0.3% Ophth Soln [Ocuflox 10 drops LEFT EAR BID 14 Days ml 08/31/18 Ophth Soln] polyethylene glycoL 3350 [Miralax] 17 gm PO DAILY 7 Days #7 packet 02/24/23 Amoxic-Pot Clav 875-125Mg 1 tab PO Q12HR #14 tab 09/07/23 [Augmentin 875-125] Benzonatate [Tessalon Perles] 100 mg PO TID PRN 10 Days #30 09/08/23 capsule Ibuprofen [Motrin] 800 mg PO Q8HR PRN #30 tab 09/24/23 ceFIXime [Suprax] 400 mg PO DAILY 7 Days #7 capsule 06/03/25 clindamycin HCL 300 mg PO QID 7 Days #28 cap 06/03/25 Mag Hydrox/Al Hydrox/Simeth 10 - 20 ml PO QID PRN #473 ml 06/11/25 [Maalox] Metoclopramide [Reglan] 10 mg PO Q6H PRN #20 tab 06/11/25 Pantoprazole Sodium 40 mg PO DAILY #30 tab 06/11/25 Allergies Allergy/AdvReac Type Severity Reaction Status Date / Time No Known Allergies Allergy Verified 06/10/25 22:20 Review of Systems ROS Statement: Those systems with pertinent positive or pertinent negative responses have been documented in the HPI. ROS Other: All systems not noted in ROS Statement are negative. Past Medical History Past Medical History: Asthma History of Any Multi-Drug Resistant Organisms: None Reported Past Surgical History: No Surgical Hx Reported, Ear Surgery Additional Past Surgical History / Comment(s): Tympanostomy tubes as a child Past Psychological History: Depression, PTSD Smoking Status: Never smoker Past Alcohol Use History: None Reported Past Drug Use History: Marijuana General Exam Limitations: no limitations General appearance: alert, in no apparent distress Head exam: Present: atraumatic, normocephalic, normal inspection Respiratory exam: Present: normal lung sounds bilaterally. Absent: respiratory distress, wheezes, rales, rhonchi, stridor Cardiovascular Exam: Present: regular rate, normal rhythm GI/Abdominal exam: Present: soft, normal bowel sounds. Absent: distended, tenderness, guarding, rebound, rigid Neurological exam: Present: alert, oriented X3, CN II-XII intact Psychiatric exam: Present: normal affect, normal mood Skin exam: Present: warm, dry, intact, normal color. Absent: rash Course Vital Signs 06/10/25 06/10/25 22:18 23:41 Temperature 98.3 F 98.1 F Pulse Rate 81 73 Respiratory 15 16 Rate Blood Pressure 130/81 109/70 O2 Sat by Pulse 100 99 Oximetry Medical Decision Making - Medical Decision Making This is a 24-year-old female who presents to the emergency department for nausea. Was pt. sent in by a medical professional or institution? @ -No Did you speak to anyone other than the patient for history? @ -No Did you review nursing and triage notes? @ -Yes, and I agree, it is accurate with regards to the patient's symptoms. Were old charts reviewed? @ -No Differential Diagnosis? @ -Differential Nausea and Vomiting: Gastroenteritis, cholecystitis, appendicitis, pancreatitis, migraine, benign positional vertigo, food borne illness, pyelonephritis, irritable bowel syndrome, influenza, Covid, GERD, incarcerated hernia, intestinal obstruction, this is not meant to be an all-inclusive list. EKG interpreted by me (3pts min.)? @ -Not obtained X-rays interpreted by me (1pt min.)? @ -Not obtained CT interpreted by me (1pt min.)? @ -Not obtained U/S interpreted by me (1pt. min.)? @ -Not obtained What testing was considered but not performed? (CT, X-rays, U/S, labs)? Why? @ -None What meds were considered but not given? Why? @ -Not Did you discuss the management of the patient with other professionals? @ -No Did you reconcile home meds? @ -No Was smoking cessation discussed for >3mins.? @ -No Was critical care preformed (if so, how long)? @ -No Were there social determinants of health that impacted care today? How? (Homeles sness, low income, unemployed, alcoholism, drug addiction, transportation, low edu. Level, literacy, decrease access to med. care, long-term, rehab)? @ -No Was there de-escalation of care discussed even if they declined? (Discuss DNR or withdrawal of care, Hospice)? @ -No What co-morbidities impacted this encounter? (DM, HTN, Smoking, COPD, CAD, Cance r, CVA, Hep., AIDS, mental health diagnosis, sleep apnea, morbid obesity)? @ -None Was patient admitted / discharged? @ -Discharged. Lab work unremarkable. Urinalysis negative for signs of infection. Symptoms were well-controlled in the emergency department and she was tolerating oral intake. She found the Reglan most effective for the nausea and this was prescribed. She was also given a prescription for pantoprazole and Maalox for further management of the esophageal reflux. Patient discharged home in stable condition. Case discussed with ED attending Dr. Rayo. Return precautions reviewed in depth, the patient is instructed to return to the emergency department with any new, worsening, or concerning symptoms. Patient verbalized understanding. Undiagnosed new problem with uncertain prognosis? @ -None Drug Therapy requiring intensive monitoring for toxicity (Heparin, Nitro, Insulin, Cardizem)? @ -None Were any procedures done? @ -None Diagnosis/symptom? @ -Nausea and vomiting, esophageal reflux Acute, or Chronic, or Acute on Chronic? @ -Acute Uncomplicated (without systemic symptoms) or Complicated (systemic symptoms)? @ -Uncomplicated Side effects of treatment? @ -None Exacerbation, Progression, or Severe Exacerbation] @ -Not applicable Poses a threat to life or bodily function? @ -No - Lab Data Result diagrams: 06/10/25 22:40 06/10/25 22:40 Lab Results 06/10/25 06/10/25 06/10/25 Range/Units 22:30 22:30 22:40 WBC 9.36 (4.50-10.00) 10*3/uL RBC 4.14 (4.10-5.20) 10*6/uL Hgb 11.7 L (12.0-15.0) g/dL Hct 35.4 L (37.2-46.3) % MCV 85.5 (80.0-97.0) fL MCH 28.3 (27.0-32.0) pg MCHC 33.1 (32.0-37.0) g/dL Plt Count 357 (140-440) 10*3/uL MPV 8.9 L (9.5-12.2) fL Immature Gran % (Auto) 0.2 % Neutrophils % 60.9 % Lymphocytes % 29.5 % Monocytes % 5.8 % Eosinophils % 3.1 % Basophils % 0.5 % Immature Gran # 0.02 (0.00-0.04) 10*3/uL Neutrophils # 5.70 (1.80-7.70) 10*3/uL Lymphocytes # 2.76 (0.90-5.00) 10*3/uL Monocytes # 0.54 (0.20-1.00) 10*3/uL Eosinophils # 0.29 (0.04-0.35) 10*3/uL Basophils # 0.05 (0.00-0.10) 10*3/uL Sodium (137-145) mmol/L Potassium (3.5-5.1) mmol/L Chloride (98-107) mmol/L Carbon Dioxide (22-30) mmol/L Anion Gap mmol/L BUN (7-17) mg/dL Creatinine (0.52-1.04) mg/dL Est GFR (CKD-EPI)AfAm (>60 ml/min/1.73 sqM) Est GFR (CKD-EPI)NonAf (>60 ml/min/1.73 sqM) Glucose (74-99) mg/dL Plasma Lactic Acid John (0.7-2.0) mmol/L Calcium (8.4-10.2) mg/dL Magnesium (1.6-2.3) mg/dL Total Bilirubin (0.2-1.3) mg/dL AST (14-36) U/L ALT (4-34) U/L Alkaline Phosphatase (38-126) U/L Total Protein (6.3-8.2) g/dL Albumin (3.5-5.0) g/dL Lipase (23-300) U/L Urine Color Colorless Urine Appearance Cloudy H (Clear) Urine pH 6.5 (5.0-8.0) Ur Specific [place] 1.016 (1.001-1.035) Urine Protein Negative (Negative) Urine Glucose (UA) Negative (Negative) Urine Ketones Negative (Negative) Urine Blood Negative (Negative) Urine Nitrite Negative (Negative) Urine Bilirubin Negative (Negative) Urine Urobilinogen <2.0 (<2.0) mg/dL Ur Leukocyte Esterase Negative (Negative) Urine RBC <1 (0-5) /hpf Urine WBC 2 (0-5) /hpf Ur Squamous Epith Cells 8 H (0-4) /hpf Urine Bacteria Rare H (None) /hpf Urine Mucus Rare H (None) /hpf Urine HCG, Qual Not Detected (Not Detectd) 06/10/25 06/10/25 Range/Units 22:40 22:40 WBC (4.50-10.00) 10*3/uL RBC (4.10-5.20) 10*6/uL Hgb (12.0-15.0) g/dL Hct (37.2-46.3) % MCV (80.0-97.0) fL MCH (27.0-32.0) pg MCHC (32.0-37.0) g/dL Plt Count (140-440) 10*3/uL MPV (9.5-12.2) fL Immature Gran % (Auto) % Neutrophils % % Lymphocytes % % Monocytes % % Eosinophils % % Basophils % % Immature Gran # (0.00-0.04) 10*3/uL Neutrophils # (1.80-7.70) 10*3/uL Lymphocytes # (0.90-5.00) 10*3/uL Monocytes # (0.20-1.00) 10*3/uL Eosinophils # (0.04-0.35) 10*3/uL Basophils # (0.00-0.10) 10*3/uL Sodium 137 (137-145) mmol/L Potassium 4.2 (3.5-5.1) mmol/L Chloride 105 (98-107) mmol/L Carbon Dioxide 23 (22-30) mmol/L Anion Gap 9 mmol/L BUN 14 (7-17) mg/dL Creatinine 0.73 (0.52-1.04) mg/dL Est GFR (CKD-EPI)AfAm >90 (>60 ml/min/1.73 sqM) Est GFR (CKD-EPI)NonAf >90 (>60 ml/min/1.73 sqM) Glucose 81 (74-99) mg/dL Plasma Lactic Acid John 0.7 (0.7-2.0) mmol/L Calcium 9.5 (8.4-10.2) mg/dL Magnesium 1.9 (1.6-2.3) mg/dL Total Bilirubin 0.2 (0.2-1.3) mg/dL AST 27 (14-36) U/L ALT 20 (4-34) U/L Alkaline Phosphatase 88 (38-126) U/L Total Protein 6.9 (6.3-8.2) g/dL Albumin 4.1 (3.5-5.0) g/dL Lipase 60 (23-300) U/L Urine Color Urine Appearance (Clear) Urine pH (5.0-8.0) Ur Specific [place] (1.001-1.035) Urine Protein (Negative) Urine Glucose (UA) (Negative) Urine Ketones (Negative) Urine Blood (Negative) Urine Nitrite (Negative) Urine Bilirubin (Negative) Urine Urobilinogen (<2.0) mg/dL Ur Leukocyte Esterase (Negative) Urine RBC (0-5) /hpf Urine WBC (0-5) /hpf Ur Squamous Epith Cells (0-4) /hpf Urine Bacteria (None) /hpf Urine Mucus (None) /hpf Urine HCG, Qual (Not Detectd) Disposition Clinical Impression: Nausea and vomiting, Esophageal reflux Disposition: HOME SELF-CARE Instructions (If sedation given, give patient instructions): GERD (Gastroesophageal Reflux Disease) (ED), Acute Nausea and Vomiting (ED) Additional Instructions: Return to the emergency department with any new, worsening, or concerning symptoms. Begin taking the pantoprazole daily. Take this 30 to 60 minutes before eating or taking other medication. You can also take the Maalox as needed to help with feelings of reflux or indigestion. The Reglan can be taken up to every 6 hours as needed for nausea or vomiting. Follow up with your primary care provider in 1-2 days. Prescriptions: Mag Hydrox/Al Hydrox/Simeth [Maalox] 10 - 20 ml PO QID PRN #473 ml PRN Reason: Gi Upset Pantoprazole Sodium 40 mg PO DAILY #30 tab Metoclopramide [Reglan] 10 mg PO Q6H PRN #20 tab PRN Reason: Nausea And Vomiting Is patient prescribed a controlled substance at d/c from ED?: No Referrals: Vannesa Mcclain DO [Primary Care Provider] - 1-2 days Time of Disposition: 01:14
== END 2025-06-11 01:22 | disposition home or self-care (01) ==
LOC: EC 22:15
DX: R11.2 Nausea with vomiting, unspecified (principal); K21.9 Gastro-esophageal reflux disease without esophagitis; N75.0 Cyst of Bartholin's gland
CPT/HCPCS: 36415; 80053; 83605; 83690; 83735; 85025; 81001; 81025; 99284; 96374; 96375 ×2; 96361; 96372; J0500; J2765; J2405; S0119; J2470; J1308